=== PATIENT | female | born 1990 | race American Indian/Alaskan Native ===

== ENCOUNTER 2018-01-27 18:00 | Emergency (ER) | payer OTHER ==
[2018-01-27 18:06] VITALS: BP 124/63
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
== END 2018-01-27 19:34 | disposition home or self-care (01) ==
LOC: ED 18:00
DX: R51 Headache (principal); M54.89 Other dorsalgia; V89.2XXA Person injured in unspecified motor-vehicle accident, traffic, initial encounter; Y93.89 Activity, other specified; Y99.8 Other external cause status; Y92.410 Unspecified street and highway as the place of occurrence of the external cause
CPT/HCPCS: 99282